=== PATIENT | female | born 1960 | race Caucasian/White ===

== ENCOUNTER 2018-10-02 10:06 | Day surgery (SDC) | payer OTHER, SELFPAY ==
--- NOTE | 2018-10-02 | PATH_ITS ---
[facility] Accession Number: [id number] . 01 Material submitted: . rectum - HIGH RECTUM POLYP BIOPSY . 02 Diagnosis: High Rectum, Polyp, Biopsy: Hyperplastic rectal mucosa with a benign lymphoid aggregate. Negative for dysplasia and malignancy. V/10/04/2018 . 02 Electronically signed: . Kenyetta Sims MD, Pathologist NPI- [id number] . 01 Gross description: . HIGH RECTUM POLYP BIOPSY: Received in formalin is 1 fragment(s) of abebe, soft tissue measuring 0.3 x 0.2 x 0.2 cm which is entirely submitted and submitted entirely in 1 cassette(s) /DMC /D[facility] . 02 Pathologist provided ICD-10: K62.1 . 02 CPT . 748869 Performed at: 01 [facility] [address] [id number] MD All Triana MD Phone: [phone] Performed at: 02 [facility] [place] [address] [place], [place] [id number] MD Kenyetta Sims MD Phone: [phone]
[2018-10-02 10:28] VITALS: BP 136/82; PULSE 92; RESP 15; TEMP 36.6; O2SAT 99; BMI 22.3
[2018-10-02] MEDS: SODIUM CHLORIDE 0.9% 1,000 ML 42 ML IV (10:37)
--- NOTE | 2018-10-02 11:26 | PM.HP.1 ---
History of Present Illness Date Patient Seen: 10/02/18 Time Patient Seen: 11:27 Chief complaint: [id number] Narrative: Cecal abnormality on previous colonoscopy. Not seen on follow-up CT. Need for biopsies to be taken Patient History Medical History (Updated 10/02/18 @ 11:28 by Josh Hinds MD) Basal cell carcinoma (Acute) Dysplastic nevus (Acute) Melanoma (Acute) Surgical History Status post surgery (02/09/12) Social History household members: family Smoking Status: Never smoker Family & Social History Social History: household members family Tobacco & Substance use: Smoking Status Never smoker Meds Home Medications Medication Instructions Recorded Confirmed Type multivitamin [Multiple Vitamins] 1 tab PO QDAY #0 03/06/17 07/30/18 History Allergies Allergy/AdvReac Type Severity Reaction Status Date / Time No Known Drug Allergies Allergy Unverified 07/30/18 12:01 Exam Vital Signs (past 8 hours): - 10/02/18 10:28 Temperature 97.9 F Pulse Rate 92 H Respiratory Rate 15 Blood Pressure 136/82 Pulse Oximetry 99 Oxygen Delivery Method Room Air Narrative Exam Narrative: Oropharynx free of lesions Chest clear to auscultation and percussion Cardiac exam reveals no S3 or murmur Assessment & Plan Assessment & Plan narrative: Cecal abnormality on previous colonoscopy possibly just tumor or carcinoid. Need for follow-up with biopsies. Risks, benefits, alternatives have been explained. Further recommendations will follow the results of the study.
--- NOTE | 2018-10-02 11:30 | P.OP.ENDO_ITS ---
Operative Date/Time/Diagnoses Date of procedure: 10/02/18 Time of procedure: 11:29 Pre-op diagnosis: See indication and findings Procedure & Clinicians Study performed: Colonoscopy Same procedure as scheduled: Yes Indications: Cecal abnormality on previous colonoscopy Surgeon: Josh Hinds Procedure Notes Procedure in detail: After informed consent was obtained the patient was placed in left lateral decubitus position. The video colonoscope was introduced into t he rectum slowly advanced to the cecum. Preparation was excellent. On slow withdrawal mucosa was carefully examined. The scope was removed. The patient tolerated the procedure well. Blood loss none Complications none Sedation Total sedation time 20 minutes Fentanyl 100 mg Versed 9 mg IV titration Findings 1. Appendiceal orifice appearing completely normal with no evidence of submucosal lesion at this time. 2. Slightly polypoid small lesion in the upper rectum with overlying erosion biopsy taken to rule out adenoma 3. Otherwise negative colonoscopy to cecum I do not think that the patient needs follow-up colonoscopy for another 5 years. We will be in touch regarding biopsies.
[2018-10-02] MEDS: MIDAZOLAM 5 MG/5 ML VIAL IV (11:59)
[2018-10-02] MEDS: fentaNYL 250 MCG/5 ML INJ IV (12:00)
[2018-10-02 12:18] VITALS: BP 136/85; PULSE 77; RESP 14; TEMP 36.6; O2SAT 97
[2018-10-02 12:23] VITALS: BP 126/80; PULSE 76; RESP 13; O2SAT 97
[2018-10-02 12:28] VITALS: BP 125/83; PULSE 77; RESP 14; O2SAT 97
[2018-10-02 12:34] VITALS: BP 145/85; PULSE 72; RESP 13; O2SAT 99
[2018-10-02 12:58] VITALS: BP 144/85; PULSE 65; RESP 15; TEMP 36.3; O2SAT 98
== END 2018-10-02 13:04 ==
LOC: ENDO 10:11
PROVIDERS: Family Provider Specialist; PCP Specialist; Visit Provider Internal Medicine Gastroenterology
PROC: 0DJD8ZZ Inspection of Lower Intestinal Tract, Via Natural or Artificial Opening Endoscopic (ICD-10-PCS; CPT 45378; principal; 2018-10-02 11:30)
DX: K38.8 Other specified diseases of appendix (principal); K62.1 Rectal polyp
CPT/HCPCS: 45380; J2250; J3010